=== PATIENT | female | born 1945 | race Caucasian/White ===

== ENCOUNTER → 2017-07-10 | Outpatient (CLI) | payer MEDICARE ==
--- NOTE | 2017-07-14 07:45 | MM ---
Reason for exam: screening (asymptomatic). Last mammogram was performed 1 year and 4 months ago. History: Patient is postmenopausal. Cancelled Left US Needle Biopsy of the left breast, February 18, 2007. Took estrogen for 10 years beginning at age 36. Physical Findings: A clinical breast exam by your physician is recommended on an annual basis and results should be correlated with mammographic findings. MG 3D Screening Mammo W/Cad Bilateral CC and MLO view(s) were taken. Prior study comparison: March 21, 2016, bilateral MG 3d screening mammo w/cad. January 26, 2015, bilateral MG 3d diag mammo w/cad LONNIE. There are scattered fibroglandular densities. Left sided subareolar nodularity is unchanged. ASSESSMENT: Negative, BI-RAD 1 RECOMMENDATION: Routine screening mammogram of both breasts in 1 year.
== END | disposition home or self-care (01) ==
LOC: RADMAMWWP 08:13
PROVIDERS: ATTEND Family Medicine
DX: Z12.31 Encounter for screening mammogram for malignant neoplasm of breast (principal)
CPT/HCPCS: 77063; 77067

== ENCOUNTER → 2018-07-13 | Outpatient (CLI) | payer MEDICARE ==
--- NOTE | 2018-07-15 11:07 | MM ---
Reason for exam: screening (asymptomatic). Last mammogram was performed 1 year ago. History: Patient is postmenopausal. Cancelled Left US Needle Biopsy of the left breast, February 18, 2007. Took estrogen for 10 years beginning at age 36. Physical Findings: A clinical breast exam by your physician is recommended on an annual basis and results should be correlated with mammographic findings. MG 3D Screening Mammo W/Cad Bilateral CC and MLO view(s) were taken. Prior study comparison: July 10, 2017, bilateral MG 3d screening mammo w/cad. March 21, 2016, bilateral MG 3d screening mammo w/cad. There are scattered fibroglandular densities. No suspicious abnormality. Stable left retroareolar focal asymmetry back to 2015. No significant changes when compared with prior studies. ASSESSMENT: Benign, BI-RAD 2 RECOMMENDATION: Routine screening mammogram of both breasts in 1 year.
== END | disposition home or self-care (01) ==
LOC: RADMAMWWP 10:01
PROVIDERS: ATTEND Family Medicine
DX: Z12.31 Encounter for screening mammogram for malignant neoplasm of breast (principal)
CPT/HCPCS: 77063; 77067

== ENCOUNTER → 2018-11-17 | Outpatient (CLI) | payer MEDICARE ==
--- NOTE | 2018-11-18 08:12 | US ---
EXAMINATION TYPE: US thyroid st tissue head/neck DATE OF EXAM: 11/17/2018 COMPARISON: NONE CLINICAL HISTORY: E04.9 Nontoxic goiter unspecified. Goiter GLAND SIZE: Right Lobe: 6.5 x 3.6 x 2.7 cm Overall Parenchyma: heterogenous Left Lobe: 6.3 x 3.3 x 3.1 cm Overall Parenchyma: heterogeneous Isthmus Thickness: 0.7 cm NODULES RIGHT: # of nodules measured on right: 1 1. 5.1 X 2.4 x 4.9 cm hypoechoic mixed nodule at the mid pole with poorly defined margins. This nod ule is wider than tall and shows intranodular vascularity. Prior size: no previous LEFT: # of nodules measured on left: 1 1. 4.8 X 2.5 x 3.3 cm hypoechoic mixed nodule at the mid pole with poorly defined margins. This nod ule is wider than tall and shows intranodular vascularity. Prior size: no previous ISTHMUS: # of nodules measured in the isthmus: 0 Bilateral neck scanned, no evidence of lymphadenopathy. IMPRESSION: There are bilateral large thyroid nodules measuring up to 5.1 cm on the right and 4.8 cm on the left. Fine-needle aspiration is recommended of both nodules.
== END | disposition home or self-care (01) ==
LOC: RADUSWWP 16:39
PROVIDERS: ATTEND Family Medicine
DX: E04.2 Nontoxic multinodular goiter (principal)
CPT/HCPCS: 76536

== ENCOUNTER → 2020-07-05 | Outpatient (CLI) | payer MEDICARE ==
--- NOTE | 2020-07-06 20:33 | NM ---
Lumbar spine. HISTORY: Back pain. COMPARISON: None. TECHNIQUE: 3 views lumbar spine were obtained. FINDINGS: The lumbar vertebral segments are normal in height and alignment and there is no fracture or subluxat ion. The disc spaces are well-maintained in height however there is spondylosis throughout the lumbar spin e indicating mild degenerative disc disease. Visualized portion the sacrum and SI joints appear normal. IMPRESSION: Findings consistent with mild degenerative disc disease throughout the lumbar spine with no other sig nificant abnormality seen.
--- NOTE | 2020-07-07 15:04 | NM ---
EXAMINATION TYPE: NM thyroid image w uptake DATE OF EXAM: 07/07/2020 COMPARISON: Thyroid ultrasound 11/17/2018 HISTORY: 75-year-old female R94.6 abn thyroid function, E04.9 goiter TECHNIQUE: Thyroid iodine uptake is calculated and images performed after the oral administration of 316 uCi 1-123 Capsule. FINDINGS: The thyroid scan images show bulky heterogeneous appearance to the gland. A couple focal areas of photopenia are present along the periphery of the mid and lower pole on the l eft. Thyroid ultrasound did not show discrete nodules in this region. Additional large area of photopenia involving the periphery of the right lobe compatible with the 5.1 cm nodule seen on ultrasound. There is an additional large area of increased uptake centered along the medial left mid lobe. Unclea r if this corresponds to the 4.8 cm left thyroid nodule seen on ultrasound. The 4 hour iodine uptake is calculated at 14.9% (normal range 8-14%). The 24-hour iodine uptake is calculated at 47.2 % (normal range 15-35%). IMPRESSION: 1. Multinodular gland on the thyroid scan images. A 5.1 cm cold nodule is suggested on the right whic h can be biopsied. 2. The 4.8 cm nodule on the left may correspond to the area of increased uptake on the thyroid scan s uggesting a hot/hyperfunctioning nodule. Given the size, biopsy can be performed prior to any subsequ ent intervention. 3. Uptake measurements suggest toxic multinodular goiter. If the patient is hyperthyroid/symptomatic, consider referral to endocrinology for potential radioactive iodine treatment.
== END | disposition home or self-care (01) ==
LOC: RADNMMAIN 08:37
PROVIDERS: ATTEND Family Medicine
DX: E04.2 Nontoxic multinodular goiter (principal)
CPT/HCPCS: 78014; A9516; 78012

== ENCOUNTER → 2021-04-09 | Outpatient (CLI) | payer MEDICARE ==
--- NOTE | 2021-04-09 16:31 | CT ---
EXAMINATION TYPE: CT soft tissue neck wo con DATE OF EXAM: 04/09/2021 COMPARISON: Nuclear medicine Thyroid scan 07/05/2020 HISTORY: 76-year-old female thyroidectomy planned for the end of the month. 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 Coronal and sagittal reconstructions performed. CT DLP: 288 mGycm Automated exposure control for dose reduction was used. FINDINGS: Visualized intracranial structures, orbits and globes, paranasal sinuses, and mastoid air cells appea r clear. Lack of IV contrast limits assessment of the cervical mucosal space. Allowing for this limitation, no gross abnormality of the nasopharynx or oropharynx. There is motion at the level of the glottis. Possible 6 mm nodularity at the left piriform sinus anu g the aryepiglottic fold, axial image 41. Subglottic airway is normal. Rightward tracheal deviation secondary to substernal extension of thyroi d goiter. No airway compromise. Emphysematous change and biapical pleural parenchymal scarring in the visualized lungs. Parotid and submandibular glands are satisfactory. Severely enlarged, heterogeneous, and nodular thyroid gland. The right lobe measures up to 7.9 cm mantel craftsman niocaudal. The left lobe measures greater than 9 cm and extends beyond the field of view into the upp er chest, left paratracheal, substernal region. No cervical adenopathy identified. Bones: Facet and uncovertebral joint arthropathy. Grade 1 retrolisthesis C4-C5 with moderate degenera tive disc disease. Moderate focal spinal canal stenosis at this level. IMPRESSION: 1. SEVERE GOITROUS ENLARGEMENT OF THE THYROID GLAND. THE RIGHT LOBE MEASURES UP TO 7.9 CM. THE LEFT L OBE MEASURES OVER 9 CM AND EXTENDS BEYOND THE FIELD OF VIEW INTO THE SUBSTERNAL, UPPER CHEST. 2. 6 MM NODULARITY ALONG THE LEFT PIRIFORM SINUS MAY BE DUE TO MOTION. DIRECT VISUALIZATION TO EXCLUD E A MUCOSAL LESION.
== END | disposition home or self-care (01) ==
LOC: RADCTMAIN 14:55
PROVIDERS: ATTEND Surgery
DX: E05.20 Thyrotoxicosis with toxic multinodular goiter without thyrotoxic crisis or storm (principal)
CPT/HCPCS: 70490

== ENCOUNTER → 2023-05-12 | Outpatient (CLI) | payer MEDICARE ==
--- NOTE | 2023-05-12 13:23 | XR ---
EXAMINATION TYPE: XR chest 2V DATE OF EXAM: 05/12/2023 12:33 PM CLINICAL INDICATION:Female, 78 years old with history of Z00.00 [facility] [employer] GENER[facility] ADULT MEDICAL EXAM W/O A; H COMPARISON: Chest radiographs from 06/02/2014. TECHNIQUE: XR chest 2V Frontal and lateral views of the chest. FINDINGS: Lungs/Pleura: There is no evidence of pleural effusion, focal consolidation, or pneumothorax. Pulmonary vascularity: Unremarkable. Heart/mediastinum: Cardiomediastinal silhouette is unremarkable. Musculoskeletal: No acute osseous pathology. IMPRESSION: 1. No acute cardiopulmonary disease process. 2. COPD changes.
--- NOTE | 2023-05-12 13:51 | XR ---
EXAMINATION TYPE: XR abdomen 1V DATE OF EXAM: 05/12/2023 12:33 PM CLINICAL INDICATION:Female, 78 years old with history of Z00.00 [facility] [employer] [facility]ULT MEDICAL EXAM W/O A; COMPARISON: 08/24/2014. TECHNIQUE: One radiographic view of the abdomen was obtained. FINDINGS: Gaseous dilation of bowel in the lower abdomen measuring up to 3.4 cm. The bowel gas patter n is nonspecific without dilated loops of small or large bowel. There is no evidence for organomegaly or pneumoperitoneum. The osseous structures are intact. No abnormal calcifications are present. Fe rivera material and gas are demonstrated throughout the colon and rectum. Moderate to severe degenerati on changes throughout the spine with scoliosis changes. Degeneration changes of the hips with osteoph yte formation and joint space narrowing. IMPRESSION: 1. Gaseous dilation of small bowel in the lower abdomen. Prominent bowel loops were seen in 2014. Ot herwise bowel gas pattern is unremarkable. 2. Moderately severe degeneration changes with scoliosis of the spine.
== END | disposition home or self-care (01) ==
LOC: RADXRMAIN 12:11
PROVIDERS: ATTEND Family Medicine
DX: Z00.00 Encounter for general adult medical examination without abnormal findings (principal); J44.9 Chronic obstructive pulmonary disease, unspecified
CPT/HCPCS: 71046; 74018

== ENCOUNTER → 2023-05-20 | Outpatient (CLI) | payer MEDICARE ==
--- NOTE | 2023-05-20 16:02 | BD ---
EXAMINATION TYPE: Axial Bone Density DATE OF EXAM: 05/20/2023 CLINICAL HISTORY: 78 years old Female. ICD-10 CODE: M81.0 AGE-RELATED OSTEOPOROSIS W/O CURRENT PATHO LOGY Height: 61 Weight: 125 FRAX RISK QUESTIONS: Family History (Parent hip fracture): no History of Fracture in Adulthood: no Secondary Osteoporosis: no RISK FACTORS HISTORY OF: Surgery to Spine/Hip(right/left)/Wrist (right/left): no MEDICATIONS: Thyroid Medications: yes Which medication: Levothyroxine How Lon+ years EXAM MEASUREMENTS: Bone mineral densitometry was performed using the [employer] System. Bone mineral density as measured about the Lumbar spine is: ----- L1-L4(G/cm2): 1.035 T Score Values are as follows: ----- L1: -2.3 ----- L2: -1.4 ----- L3: -1.0 ----- L4: -0.4 ----- L1-L4: -1.2 Z Score Values are as follows: ----- L1: -0.2 ----- L2: 0.7 ----- L3: 1.1 ----- L4: 1.7 ----- L1-L4: 0.9 Bone mineral density baseline Bone mineral density about the R hip (g/cm2): 0.652 Bone mineral density about the L hip (g/cm2): 0.644 T Score values are as follows: -----R Neck: -2.0 -----L Neck: -1.8 -----R Total: -2.8 -----L Total: -2.9 Z Score values are as follows: -----R Neck: 0.2 -----L Neck: 0.5 -----R Total: -0.7 -----L Total: -0.7 Bone mineral density baseline FRAX%s: The graph provided illustrates a 15.4% chance for a major osteoporotic fx and a 4.7% chance f or the hips probability for fx in 10 years time. IMPRESSION: Osteopenia (T Score between -2.5 and -1). There is slightly increased risk of fracture and the patient may be considered for treatment. Re-Screen 2-5 years. NOTE: T-SCORE=SD OF THE YOUNG ADULT MEAN.
== END | disposition home or self-care (01) ==
LOC: RADBDWWP 07:48
PROVIDERS: ATTEND Family Medicine
DX: M85.89 Other specified disorders of bone density and structure, multiple sites (principal); M81.0 Age-related osteoporosis without current pathological fracture
CPT/HCPCS: 77080

== ENCOUNTER 2023-10-13 11:24 | Observation (INO) | payer MEDICARE ==
--- NOTE | 2023-10-13 11:55 | ED ---
Chest Pain HPI - General Source: patient, family, RN notes reviewed Mode of arrival: ambulatory Limitations: no limitations - History of Present Illness MD Complaint: chest pain <Maren Hills - Last Filed: 10/13/23 11:54> - General Source: patient, RN notes reviewed Limitations: no limitations <Neal May - Last Filed: 10/13/23 13:27> - General Chief Complaint: Chest Pain Stated Complaint: chest pain Time Seen by Provider: 10/13/23 11:54 - History of Present Illness Initial Comments: Quick Note: This is a 78-year-old female who presents to the emergency department for chest pain. This has been occurring intermittently for the last 3 weeks. It is worse on the left side. Unsure how to characterize the pain. Pain occurs both at rest and with exertion. Denies any history of cardiac problems. (Maren Hills) Patient is a 78-year-old female presenting to the emergency department with concerns of chest discomfort. Symptoms have been present over the past couple of weeks. Discomfort can sometimes get up to 4 5/10, no discomfort at this time. Discomfort feels like an ache. No associated dyspnea, nausea, or diaphoresis. No history of similar symptoms previously (Neal May) - Related Data Home Medications Medication Instructions Recorded Confirmed Bimatoprost [Lumigan 0.01% Ophth 1 drop BOTH EYES HS 11/30/13 08/25/14 Soln] Cetirizine HCl [Zyrtec] 10 mg PO HS 11/30/13 08/25/14 allopurinoL [Zyloprim] 300 mg PO HS 11/30/13 08/25/14 busPIRone HCl [Buspar] 5 mg PO BID 11/30/13 08/25/14 guaiFENesin [Mucinex] 600 mg PO BID 11/30/13 08/25/14 raNITIdine HCL [Zantac] 150 mg PO HS 11/30/13 08/25/14 Albuterol Sulfate [Proair Hfa] 2 puff INHALATION RT-Q4H PRN 06/02/14 08/25/14 Atorvastatin [Lipitor] 20 mg PO HS 06/02/14 08/25/14 Docusate [Colace] 100 mg PO DAILY PRN 06/02/14 08/25/14 Triamcinolone Acetonide [Nasacort] 1 spray EA NOSTRIL DAILY PRN 06/02/14 amLODIPine [Norvasc] 5 mg PO DAILY 06/02/14 08/25/14 Albuterol Nebulized [Ventolin 2.5 mg INHALATION RT-Q8H PRN 08/25/14 08/25/14 Nebulized] Budesonide [Pulmicort Flexhaler] 1 puff PO RT-BID 08/25/14 08/25/14 Ipratropium/Albuterol Sulfate 1 puff INHALATION RT-QID 08/25/14 08/25/14 [Combivent Respimat Inhaler] Previous Rx's Medication Instructions Recorded Levofloxacin [Levaquin] 250 mg PO DAILY #3 tab 08/26/14 Allergies Allergy/AdvReac Type Severity Reaction Status Date / Time amoxicillin trihydrate AdvReac Nausea & Verified 08/25/14 16:12 [From Augmentin] Vomiting cholecalciferol (vitamin D3) AdvReac CONSTIPATIO Verified 08/25/14 16:12 [From Vitamin D3] N erythromycin base AdvReac Nausea & Verified 08/25/14 16:12 [Erythromycin Base] Vomiting iron AdvReac Nausea Verified 08/25/14 16:12 potassium clavulanate AdvReac Nausea & Verified 08/25/14 16:12 [From Augmentin] Vomiting Review of Systems ROS Other: All systems not noted in ROS Statement are negative. <Maren Hills - Last Filed: 10/13/23 11:54> ROS Other: All systems not noted in ROS Statement are negative. Constitutional: Denies: fever Eyes: Denies: eye pain ENT: Denies: ear pain Respiratory: Denies: dyspnea Cardiovascular: Reports: as per HPI, chest pain Endocrine: Denies: fatigue Gastrointestinal: Denies: abdominal pain Musculoskeletal: Denies: back pain <Neal May - Last Filed: 10/13/23 13:27> ROS Statement: Those systems with pertinent positive or pertinent negative responses have been documented in the HPI. EKG Findings - EKG Results: EKG: interpreted by ERMD, sinus rhythm, normal axis, normal QRS, normal ST/T <Neal May - Last Filed: 10/13/23 13:27> Past Medical History Past Medical History: GERD/Reflux, Hyperlipidemia, Hypertension Additional Past Medical History / Comment(s): seasonal allergies, mac. degen disease, GOUT,ANEMIA, Hyperkalemia 07/2014, Pancreatitis 08/2014 History of Any Multi-Drug Resistant Organisms: None Reported Past Surgical History: Appendectomy, Section, Cholecystectomy, Hysterectomy, Tonsillectomy Additional Past Surgical History / Comment(s): D&C x 2 Past Anesthesia/Blood Transfusion Reactions: No Reported Reaction Additional Past Anesthesia/Blood Transfusion Reaction / Comment(s): vertigo Past Psychological History: Anxiety Past Alcohol Use History: None Reported Past Drug Use History: None Reported - Past Family History Father Family Medical History: Unable to Obtain Mother Family Medical History: Unable to Obtain Additional Family Medical History / Comment(s): Pt was adopted <Maren Hills - Last Filed: 10/13/23 11:54> General Exam Limitations: no limitations <Maren Hills - Last Filed: 10/13/23 11:54> Limitations: no limitations General appearance: alert, in no apparent distress Head exam: Present: normocephalic Eye exam: Present: normal appearance Neck exam: Present: normal inspection Respiratory exam: Present: normal lung sounds bilaterally. Absent: chest wall tenderness Cardiovascular Exam: Present: regular rate, normal rhythm, normal heart sounds Expanded Peripheral pulses: 2+: Radial (R), Radial (L), Posterior Tibialis (R), Posterior Tibialis (L) GI/Abdominal exam: Present: soft. Absent: tenderness Extremities exam: Present: normal inspection. Absent: pedal edema, calf tenderness Neurological exam: Present: alert Psychiatric exam: Present: normal affect, normal mood Skin exam: Present: normal color <Neal May - Last Filed: 10/13/23 13:27> - General Exam Comments Initial Comments: Visual Physical Exam Vital signs reviewed General: Well-appearing, nontoxic, no acute distress. Head: Normocephalic, atraumatic Eyes: PERRLA, EOMI ENT: Airway patent Chest: Nonlabored breathing Skin: No visual rash, normal skin tone Neuro: Alert and oriented 3 Musculoskeletal: No gross abnormalities (Maren Hills) Course Vital Signs 10/13/23 10/13/23 10/13/23 11:31 12:17 12:32 Temperature 978 F H 97.9 F Pulse Rate 100 86 Pulse Rate [ 98 Pulse Oximetery ] Respiratory 20 17 Rate Blood Pressure 133/83 144/78 O2 Sat by Pulse 98 96 Oximetry Chest Pain MDM <Maren Hills - Last Filed: 10/13/23 11:54> <Neal May - Last Filed: 10/13/23 13:27> - MDM I performed the QuickNote portion of this chart. Signed Maren Hills PA-C. (Maren Hills) Was pt. sent in by a medical professional or institution (, ORAL, WARE TESTER, urgent care, hospital, or fci...) When possible be specific @ -No Did you speak to anyone other than the patient for history (EMS, parent, family, police, friend...)? What history was obtained from this source @ -Daughter is present helps provide history including onset Did you review nursing and triage notes (agree or disagree)? Why? @ -I reviewed and agree with nursing and triage notes Were old charts reviewed (outside hosp., previous admission, EMS record, old EKG, old radiological studies, urgent care reports/EKG's, fci records)? Report findings @ -No old charts were reviewed Differential Diagnosis (chest pain, altered mental status, abdominal pain women, abdominal pain men, vaginal bleeding, weakness, fever, dyspnea, syncope, headache, dizziness, GI bleed, back pain, seizure, CVA, palpatations, mental health, musculoskeletal)? @ -Differential Chest Pain: Stable Angina, Unstable Angina, STEMI, NSTEMI Aortic Dissection, Pneumothorax, Musculoskeletal, Esophageal Spasm GERD, Cholecystitis, Pancreatitis, Zoster, this is not meant to be an all-inclusive list. EKG interpreted by me (3pts min.). @ -As above X-rays interpreted by me (1pt min.). @ -Chest x-ray shows no acute process CT interpreted by me (1pt min.). @ -None done U/S interpreted by me (1pt. min.). @ -None done What testing was considered but not performed or refused? (CT, X-rays, U/S, labs)? Why? @ -None What meds were considered but not given or refused? Why? @ -None Did you discuss the management of the patient with other professionals (professionals i.e. , PA, WARE TESTER, lab, RT, psych nurse, director of social work, cable respooler, teacher, parachute officer, manager of case management)? Give summary @ -Case was discussed with Dr. Rodriguez who will admit covering Dr. Young Was smoking cessation discussed for >3mins.? @ -No Was critical care preformed (if so, how long)? @ -No Were there social determinants of health that impacted care today? How? (Homelessness, low income, unemployed, alcoholism, drug addiction, transportation, low edu. Level, literacy, decrease access to med. care, intermediate, rehab)? @ -No Was there de-escalation of care discussed even if they declined (Discuss DNR or withdrawal of care, Hospice)? DNR status @ -No What co-morbidities impacted this encounter? (DM, HTN, Smoking, COPD, CAD, Cancer, CVA, ARF, Chemo, Hep., AIDS, mental health diagnosis, sleep apnea, morbid obesity)? @ -None Was patient admitted / discharged? Hospital course, mention meds given and route, prescriptions, significant lab abnormalities, going to OR and other pertinent info. @ -Patient presents with chest discomfort over the last couple of weeks, patient will be admitted with cardiac consult. Admission orders written. Undiagnosed new problem with uncertain prognosis? @ -No Drug Therapy requiring intensive monitoring for toxicity (Heparin, Nitro, Insulin, Cardizem)? @ -No Were any procedures done? @ -No Diagnosis/symptom? @ -Chest pain Acute, or Chronic, or Acute on Chronic? @ -Acute Uncomplicated (without systemic symptoms) or Complicated (systemic symptoms)? @ -Default Side effects of treatment? @ -No Exacerbation, Progression, or Severe Exacerbation? @ -No Poses a threat to life or bodily function? How? (Chest pain, [place], [place], pneumonia, PE, COPD, DKA, ARF, appy, cholecystitis, CVA, Diverticulitis, Homicidal, Suicidal, threat to staff... and all critical care pts) @ -Threat to cardiac function (Neal May) Disposition <Maren Hills - Last Filed: 10/13/23 11:54> Is patient prescribed a controlled substance at d/c from ED?: No Time of Disposition: 13:27 <Neal May - Last Filed: 10/13/23 13:27> Clinical Impression: Chest pain Disposition: ADMITTED IP TO THIS HOSP Referrals: Kt Young DO [Primary Care Provider] - 1-2 days
[2023-10-13 11:58] LABS: Basophils % (A) 0 %; Eosinophils # (A) 0.1 k/uL (0-0.7); Eosinophils % (A) 1 %; HGB 10.8 gm/dL (11.4-16.0); Lymphocytes # (A) 1.4 k/uL (1.0-4.8); Lymphocytes % (A) 19 %; MCH 30.6 pg (25.0-35.0); MCHC 33.7 g/dL (31.0-37.0); MCV 90.9 fL (80.0-100.0); Mean Platelet Volume 7.2; Monocytes # (A) 0.6 k/uL (0-1.0); Monocytes % (A) 8 %; Neutrophils # (A) 5.2 k/uL (1.3-7.7); Neutrophils % (A) 69 %; Platelet Count 321 k/uL (150-450); RBC 3.52 m/uL (3.80-5.40); RDW 14.2 % (11.5-15.5); WBC 7.6 k/uL (3.8-10.6)
[2023-10-13 12:12] LABS: Partial Thromboplastin Time 24.2 sec (22.0-30.0); Prothrombin Time 10.6 sec (10.0-12.5)
[2023-10-13 12:16] LABS: ALT 23 U/L (4-34); AST 31 U/L (14-36); African American GFR (CKD) >90 (>60 ml/min/1.73 sqM); Albumin 3.7 g/dL (3.5-5.0); Alkaline Phosphatase 79 U/L (38-126); Anion Gap 6 mmol/L; Blood Urea Nitrogen 15 mg/dL (7-17); Calcium 8.8 mg/dL (8.4-10.2); Carbon Dioxide 23 mmol/L (22-30); Chloride 105 mmol/L (98-107); Glucose 105 mg/dL (74-99); Magnesium 1.3 mg/dL (1.6-2.3); Non-African American GFR(CKD) 86 (>60 ml/min/1.73 sqM); Potassium 4.4 mmol/L (3.5-5.1); Sodium 134 mmol/L (137-145); Total Bilirubin 0.4 mg/dL (0.2-1.3)
[2023-10-13] MEDS: MAGNESIUM OXIDE 400 MG TAB PO STA (12:33)
--- NOTE | 2023-10-13 12:33 | XR ---
EXAMINATION TYPE: XR chest 2V DATE OF EXAM: 10/13/2023 COMPARISON: 05/12/2023 HISTORY: Chest pain TECHNIQUE: 2 view chest FINDINGS: The heart size is normal. The pulmonary vasculature is normal. The lungs are clear rate oss eous structures are unremarkable. IMPRESSION: 1. No acute pulmonary process.
[2023-10-13] MEDS ORDERED: NITROGLYCERIN SL TABS 0.4 MG TAB SUBLINGUAL PRN (13:27)
[2023-10-13] MEDS: ASPIRIN 81 MG PO STA (13:36)
[2023-10-13] MEDS ORDERED: ALBUTEROL NEBULIZED 2.5 MG/3 ML INHALATION PRN (14:27)
--- NOTE | 2023-10-13 15:14 | P.CRDCN ---
History of Present Illness History of present illness: HISTORY OF PRESENTING ILLNESS Patient is a pleasant 78-year-old female with history of hypertension, hyperlipidemia, GERD, gout who presents secondary chest pain. She has not seen a hospitality recruiter in a number of years. She believes her last stress test was approximately 10 years ago. She does not have any history of significant CAD or catheterization. She states over last 3 months she has been having intermittent episodes of chest pain usually lasting for a few minutes up to 20 minutes not associated with any significant shortness breath, nausea or diaphoresis. It feels like a achiness behind her left breast. No significant association with movement or positioning. No significant trauma. Symptoms have been recurrent and therefore mention this to her daughter who works at the prior station and was recommended to come to the hospital. Denies any significant palpitations du ring these episodes. REVIEW OF SYSTEMS At the time of my exam: CONSTITUTIONAL: Denies fever or chills. CARDIOVASCULAR: +chest pain, +shortness of breath, no orthopnea, PND or palpitations. RESPIRATORY: Denies cough. GASTROINTESTINAL: Denies abdominal pain, diarrhea, constipation, nausea or vomiting. MUSCULOSKELETAL: Denies myalgias. NEUROLOGIC: Denies numbness, tingling or weakness. ENDOCRINE: Denies fatigue, weight change, polydipsia or polyurina. GENITOURINARY: Denies burning, hematuria or urgency with micturation. HEMATOLOGIC: Denies history of anemia or bleeding. PHYSICAL EXAMINATION Vital signs reviewed. CONSTITUTIONAL: No apparent distress. HEENT: Head is normocephalic. Pupils are equal, round. Sclerae anicteric. Mucous membranes of the mouth are moist. No JVD. No carotid bruit. CHEST EXAMINATION: Lungs are clear to auscultation. No chest wall tenderness is noted on palpation or with deep breathing. HEART EXAMINATION: Regular rate and rhythm. S1, S2 heard. No murmurs, gallops or rub. ABDOMEN: Soft, nontender. Positive bowel sounds. EXTREMITIES: 2+ peripheral pulses, no lower extremity edema and no calf tenderness. NEUROLOGIC EXAMINATION: Patient is awake, alert and oriented x3. ASSESSMENT Atypical episodic chest pain over the last few months Hypertension Hyperlipidemia Dyspnea PLAN patient with intermittent episodes of chest pain. We will check echo to evaluat e left ventricular function. Additionally check a Lexiscan stress test. Monitor on telemetry for any significant arrhythmias. Further recommendations to follow. Past Medical History Past Medical History: GERD/Reflux, Hyperlipidemia, Hypertension Additional Past Medical History / Comment(s): seasonal allergies, mac. degen disease, GOUT,ANEMIA, Hyperkalemia 07/2014, Pancreatitis 08/2014 History of Any Multi-Drug Resistant Organisms: None Reported Past Surgical History: Appendectomy, Section, Cholecystectomy, Hysterectomy, Tonsillectomy Additional Past Surgical History / Comment(s): D&C x 2 Past Anesthesia/Blood Transfusion Reactions: No Reported Reaction Additional Past Anesthesia/Blood Transfusion Reaction / Comment(s): vertigo Past Psychological History: Anxiety Past Alcohol Use History: None Reported Past Drug Use History: None Reported - Past Family History Father Family Medical History: Unable to Obtain Mother Family Medical History: Unable to Obtain Additional Family Medical History / Comment(s): Pt was adopted Medications and Allergies Home Medications Medication Instructions Recorded Confirmed Type Cetirizine HCl [Zyrtec] 10 mg PO BID 11/30/13 10/13/23 History allopurinoL [Zyloprim] 300 mg PO DAILY 11/30/13 10/13/23 History busPIRone HCl [Buspar] 5 mg PO BID 11/30/13 10/13/23 History guaiFENesin [Mucinex] 600 mg PO BID 11/30/13 10/13/23 History Albuterol Sulfate [Proair Hfa] 2 puff INHALATION RT-QID PRN 06/02/14 10/13/23 H istory Atorvastatin [Lipitor] 20 mg PO DAILY 06/02/14 10/13/23 History Triamcinolone Acetonide [Nasacort] 1 spr EA NOSTRIL DAILY PRN 06/02/14 10/13/23 History amLODIPine [Norvasc] 5 mg PO DAILY 06/02/14 10/13/23 History Albuterol Nebulized [Ventolin 2.5 mg INHALATION RT-QID PRN 08/25/14 10/13/23 History Nebulized] Acetaminophen Tab [Tylenol Tab] 500 - 1,000 mg PO Q6H PRN 10/13/23 10/13/23 History Calcium Carbonate [Calcium] 600 mg PO DAILY 10/13/23 10/13/23 History Clobetasol Propionate [Temovate 1 applic TOPICAL BID PRN 10/13/23 10/13/23 History 0.05% Cream] Easy Iron 28mg 28 mg PO Q2D 10/13/23 10/13/23 History Elderberry 1250mg 1 tab PO BID 10/13/23 10/13/23 History Eye Itch Relief 0.035% Eye Drops 1 drop BOTH EYES DAILY PRN 10/13/23 10/13/23 History Leg Cramp Tabs(Unknown) 1 tab PO DAILY 10/13/23 10/13/23 History Levothyroxine Sodium [Synthroid] 100 mcg PO DAILY 10/13/23 10/13/23 History Loratadine [Children's Loratadine 5 mg PO DAILY PRN 10/13/23 10/13/23 History Chew] Multivitamin [Multivitamins Adult 2 tab PO DAILY 10/13/23 10/13/23 History Gummies] Omeprazole 20 mg PO BID 10/13/23 10/13/23 History Vitamin B Complex W/Vitamin C 1 tab PO DAILY 10/13/23 10/13/23 History Vitamin B-12 Gummy 2 tab PO DAILY 10/13/23 10/13/23 History Vitamin C 250mg Gummy 500 mg PO DAILY 10/13/23 10/13/23 History Vitamin D3 50mcg Gummy 100 mcg PO DAILY 10/13/23 10/13/23 History Zinc Gummy 2 tab PO DAILY 10/13/23 10/13/23 History metFORMIN HCL [Glucophage] 500 mg PO DAILY 10/13/23 10/13/23 History Allergies Allergy/AdvReac Type Severity Reaction Status Date / Time amoxicillin trihydrate AdvReac Nausea & Verified 10/13/23 13:47 [From Augmentin] Vomiting cholecalciferol (vitamin D3) AdvReac CONSTIPATIO Verified 10/13/23 13:47 [From Vitamin D3] N erythromycin base AdvReac Nausea & Verified 10/13/23 13:47 [Erythromycin Base] Vomiting iron AdvReac Nausea Verified 10/13/23 13:47 potassium clavulanate AdvReac Nausea & Verified 10/13/23 13:47 [From Augmentin] Vomiting Physical Exam Vitals: Vital Signs Temp Pulse Pulse Resp BP Pulse Ox 10/13/23 13:40 98.5 F 86 17 154/82 97 10/13/23 12:32 97.9 F 86 17 144/78 96 10/13/23 12:17 98 10/13/23 11:31 978 F H 100 20 133/83 98 Intake and Output 10/13/23 10/13/23 10/13/23 06:59 14:59 22:59 Other: Weight 56.699 kg Results 10/13/23 11:50 10/13/23 11:50 Cardiac Enzymes 10/13/23 10/13/23 10/13/23 Range/Units 11:50 11:50 13:30 AST 31 (14-36) U/L Troponin I <0.012 <0.012 (0.000-0.034) ng/mL Coagulation 10/13/23 Range/Units 11:50 PT 10.6 (10.0-12.5) sec APTT 24.2 (22.0-30.0) sec CBC 10/13/23 Range/Units 11:50 WBC 7.6 (3.8-10.6) k/uL RBC 3.52 L (3.80-5.40) m/uL Hgb 10.8 L (11.4-16.0) gm/dL Hct 32.0 L (34.0-46.0) % Plt Count 321 (150-450) k/uL Comprehensive Metabolic Panel 10/13/23 Range/Units 11:50 Sodium 134 L (137-145) mmol/L Potassium 4.4 (3.5-5.1) mmol/L Chloride 105 (98-107) mmol/L Carbon Dioxide 23 (22-30) mmol/L BUN 15 (7-17) mg/dL Creatinine 0.62 (0.52-1.04) mg/dL Glucose 105 H (74-99) mg/dL Calcium 8.8 (8.4-10.2) mg/dL AST 31 (14-36) U/L ALT 23 (4-34) U/L Alkaline Phosphatase 79 (38-126) U/L Total Protein 6.0 L (6.3-8.2) g/dL Albumin 3.7 (3.5-5.0) g/dL Current Medications Generic Name Dose Route Start Last Admin Trade Name Freq PRN Reason Stop Dose Admin Albuterol Sulfate 2.5 mg 10/13/23 14:27 Albuterol Nebulized 2.5 Mg/3 Ml INHALATION RT-QID PRN Shortness Of Breath Allopurinol 300 mg 10/14/23 09:00 Allopurinol 300 Mg Tab PO DAILY [facility] Aminophylline 100 mg 10/14/23 06:00 Aminophylline 500 Mg/20 Ml Vial IV 10/14/23 23:00 ONCE PRN Patient Response Amlodipine Besylate 5 mg 10/14/23 09:00 Amlodipine 5 Mg Tab PO DAILY [facility] Ascorbic Acid 500 mg 10/14/23 09:00 Ascorbic Acid 500 Mg Tab PO DAILY [facility] Aspirin 325 mg 10/14/23 09:00 Aspirin 325 Mg Tab PO DAILY [facility] Atorvastatin Calcium 20 mg 10/14/23 09:00 Atorvastatin 20 Mg Tab PO DAILY [facility] Buspirone HCl 5 mg 10/13/23 21:00 Buspirone Hcl 5 Mg Tab PO BID [facility] Caffeine Citrate 60 mg 10/14/23 05:00 Caffeine Citrate 60 Mg/3 Ml Vial IV 10/14/23 23:00 ONCE PRN Patient Response Calcium Carbonate/Glycine 500 mg 10/14/23 09:00 Calcium Carbonate 500 Mg Chewable PO DAILY [facility] Cholecalciferol 125 mcg 10/14/23 09:00 Cholecalciferol 125 Mcg (5000 Iu) Tablet PO DAILY [facility] Cyanocobalamin 500 mcg 10/14/23 09:00 Cyanocobalamin 500 Mcg Tab PO DAILY [facility] Guaifenesin 600 mg 10/13/23 21:00 Guaifenesin 600 Mg Tablet.Er PO BID [facility] Levothyroxine Sodium 100 mcg 10/14/23 06:30 Levothyroxine 100 Mcg Tab PO DAILY@0630 [facility] Loratadine 10 mg 10/13/23 21:00 Loratadine 10 Mg Tab PO BID [facility] Metformin HCl 500 mg 10/14/23 09:00 Metformin 500 Mg Tab PO DAILY [facility] Multivit/Ca Carb/B Cmplx/FA/Prenat 1 each 10/14/23 09:00 Folic Acid-Vit B Complex-Vit C 1 Cap PO DAILY [facility] Nitroglycerin 0.4 mg 10/13/23 13:27 Nitroglycerin Sl Tabs 0.4 Mg Tab SUBLINGUAL Q5M PRN Chest Pain Pantoprazole Sodium 40 mg 10/14/23 07:30 Pantoprazole 40 Mg Tablet PO AC-BRKFST [facility] Regadenoson 0.4 mg 10/14/23 06:00 Regadenoson 0.4 Mg/5 Ml Syringe IV 10/14/23 23:00 ONCE PRN Per Protocol Intake and Output 10/13/23 10/13/23 10/13/23 06:59 14:59 22:59 Other: Weight 56.699 kg Patient Weight 10/14/23 06:59 Weight 56.699 kg 10/13/23 11:50 10/13/23 11:50
[2023-10-13] MEDS: guaiFENesin 600 MG TABLET.ER PO SCH (20:45)
[2023-10-13] MEDS: busPIRone HCl 5 MG TAB PO SCH (20:45)
[2023-10-13] MEDS: LORATADINE 10 MG TAB PO SCH (20:45)
--- NOTE | 2023-10-13 22:44 | P.HPIM ---
History of Present Illness H&P Date: 10/13/23 Chief Complaint: Chest pain Patient is a 78-year-old female with a past medical history of hypertension, hyperlipidemia, GERD and seasonal allergies and anxiety presents to ER with complaints of chest pain. Patient states that she has been having chest pain on and off over the lasting about 5 to 10 minutes. Pain is mainly behind the left breast and felt like pressure. Episodes with some nausea. No chills or vomiting. Denies any hematemesis or melena. No headache or dizziness or lightheadedness. No radiation of the pain. Denies any recent illnesses. Patient does take arthritis pain pill which she does not know. Patient takes it 3 times daily. No prior history of gastric ulcers. Chest x-ray showed no acute pulmonary process. EKG showed sinus rhythm. Laboratory data showed WBC 7.6 hemoglobin 10.8 and platelets 321 sodium 134 potassium 4.4 chloride 105 bicarb is 23 BUN 15 and creatinine 0.62 and blood sugar is 105 magnesium 1.3 and troponin x 2 negative. Albumin 3.7. Review of Systems Constitutional: Patient denies any fever or chills . No generalized weakness or weight loss. Abdomen: Patient denied nausea vomiting and diarrhea and abdominal pain. Cardiovascular: Patient denies any chest pain or short of breath no pa lpitations. Respiratory: patient denied any cough or sputum production. No shortness of breath Neurologic: Patient denied any numbness or tingling. no headache. Musculoskeletal: Patient denies any complaints of joint swelling or deformity. Skin: Negative Psychiatric: Negative Endocrine: No heat or cold intolerance. No recent weight gain. Genitourinary: No dysuria or hematuria. All other 14 point ROS negative except the above Past Medical History Past Medical History: GERD/Reflux, Hyperlipidemia, Hypertension Additional Past Medical History / Comment(s): seasonal allergies, mac. degen disease, GOUT,ANEMIA, Hyperkalemia 07/2014, Pancreatitis 08/2014 History of Any Multi-Drug Resistant Organisms: None Reported Past Surgical History: Appendectomy, Section, Cholecystectomy, Hysterectomy, Tonsillectomy Additional Past Surgical History / Comment(s): D&C x 2 Past Anesthesia/Blood Transfusion Reactions: No Reported Reaction Additional Past Anesthesia/Blood Transfusion Reaction / Comment(s): vertigo Past Psychological History: Anxiety Past Alcohol Use History: None Reported Past Drug Use History: None Reported - Past Family History Father Family Medical History: Unable to Obtain Mother Family Medical History: Unable to Obtain Additional Family Medical History / Comment(s): Pt was adopted Medications and Allergies Home Medications Medication Instructions Recorded Confirmed Type Cetirizine HCl [Zyrtec] 10 mg PO BID 11/30/13 10/13/23 History allopurinoL [Zyloprim] 300 mg PO DAILY 11/30/13 10/13/23 History busPIRone HCl [Buspar] 5 mg PO BID 11/30/13 10/13/23 History guaiFENesin [Mucinex] 600 mg PO BID 11/30/13 10/13/23 History Albuterol Sulfate [Proair Hfa] 2 puff INHALATION RT-QID PRN 06/02/14 10/13/23 History Atorvastatin [Lipitor] 20 mg PO DAILY 06/02/14 10/13/23 History Triamcinolone Acetonide [Nasacort] 1 spr EA NOSTRIL DAILY PRN 06/02/14 10/13/23 History amLODIPine [Norvasc] 5 mg PO DAILY 06/02/14 10/13/23 History Albuterol Nebulized [Ventolin 2.5 mg INHALATION RT-QID PRN 08/25/14 10/13/23 History Nebulized] Acetaminophen Tab [Tylenol] 500 - 1,000 mg PO Q6H PRN 10/13/23 10/13/23 History Calcium Carbonate [Calcium] 600 mg PO DAILY 10/13/23 10/13/23 History Clobetasol Propionate [Temovate 1 applic TOPICAL BID PRN 10/13/23 10/13/23 History 0.05% Cream] Easy Iron 28mg 28 mg PO Q2D 10/13/23 10/13/23 History Elderberry 1250mg 1 tab PO BID 10/13/23 10/13/23 History Eye Itch Relief 0.035% Eye Drops 1 drop BOTH EYES DAILY PRN 10/13/23 10/13/23 History Leg Cramp Tabs(Unknown) 1 tab PO DAILY 10/13/23 10/13/23 History Levothyroxine Sodium [Synthroid] 100 mcg PO DAILY 10/13/23 10/13/23 History Loratadine [Children's Loratadine 5 mg PO DAILY PRN 10/13/23 10/13/23 History Chew] Multivitamin [Multivitamins Adult 2 tab PO DAILY 10/13/23 10/13/23 History Gummies] Omeprazole 20 mg PO BID 10/13/23 10/13/23 History Vitamin B Complex W/Vitamin C 1 tab PO DAILY 10/13/23 10/13/23 History Vitamin B-12 Gummy 2 tab PO DAILY 10/13/23 10/13/23 History Vitamin C 250mg Gummy 500 mg PO DAILY 10/13/23 10/13/23 History Vitamin D3 50mcg Gummy 100 mcg PO DAILY 10/13/23 10/13/23 History Zinc Gummy 2 tab PO DAILY 10/13/23 10/13/23 History metFORMIN HCL [Glucophage] 500 mg PO DAILY 10/13/23 10/13/23 History Allergies Allergy/AdvReac Type Severity Reaction Status Date / Time amoxicillin trihydrate AdvReac Nausea & Verified 10/13/23 13:47 [From Augmentin] Vomiting cholecalciferol (vitamin D3) AdvReac CONSTIPATIO Verified 10/13/23 13:47 [From Vitamin D3] N erythromycin base AdvReac Nausea & Verified 10/13/23 13:47 [Erythromycin Base] Vomiting iron AdvReac Nausea Verified 10/13/23 13:47 potassium clavulanate AdvReac Nausea & Verified 10/13/23 13:47 [From Augmentin] Vomiting Physical Exam Vitals: Vital Signs Temp Pulse Pulse Resp BP Pulse Ox 10/13/23 13:40 98.5 F 86 17 154/82 97 10/13/23 12:32 97.9 F 86 17 144/78 96 10/13/23 12:17 98 10/13/23 11:31 978 F H 100 20 133/83 98 Intake and Output 10/13/23 10/13/23 10/13/23 06:59 14:59 22:59 Other: Weight 56.699 kg PHYSICAL EXAMINATION: Patient is lying in the bed comfortably, no acute distress, awake alert and oriented.. HEENT: Normocephalic. Neck is supple. Pupils reactive. Nostrils clear. Oral cavity is moist. Neck reveals no JVD, carotid bruits, or thyromegaly. CHEST EXAMINATION: Trachea is central. Symmetrical expansion. Lung seymour clear to auscultation and percussion. CARDIAC: Normal S1, S2 with no gallops. No murmurs ABDOMEN: Soft. Bowel sounds normal. No organomegaly. No abdominal bruits. Extremities: reveal no edema. No clubbing or cyanosis Neurologically awake, alert, oriented x3 with well-coordinated movements. No focal deficits noted Skin: No rash or skin lesions. Psychiatric: Coperative. Nonsuicidal Musculoskeletal: No joint swelling or deformity. Normal range of motion. Results CBC & Chem 7: 10/13/23 11:50 10/14/23 08:20 Labs: Abnormal Lab Results - Last 24 Hours (Table) 10/13/23 10/13/23 Range/Units 11:50 11:50 RBC 3.52 L (3.80-5.40) m/uL Hgb 10.8 L (11.4-16.0) gm/dL Hct 32.0 L (34.0-46.0) % Sodium 134 L (137-145) mmol/L Glucose 105 H (74-99) mg/dL Magnesium 1.3 L (1.6-2.3) mg/dL Total Protein 6.0 L (6.3-8.2) g/dL Thrombosis Risk Factor Assmnt - DVT/VTE Prophylaxis DVT/VTE Prophylaxis: Pharmacologic Prophylaxis ordered Assessment and Plan Assessment: Atypical chest pain. Rule out ACS. Hypomagnesemia replaced. Hypertension Hyperlipidemia Osteoarthritis Hypothyroidism GERD Seasonal allergies Macular degeneration History of gout Anxiety Polypharmacy DVT and GI prophylaxis Plan: Patient will be continued on telemonitoring. Serial EKG and troponin x 3. Initial troponins negative. Continue with PPI and cardiology was consulted. Cardiology recommends stress test. Will continue to follow closely. Time with Patient: Greater than 30
[2023-10-14] MEDS: MAGNESIUM SULFATE-D5W PMX 1 GM in DEXTROSE/WATER 1 100ML.BAG IVPB ONE (00:34)
[2023-10-14] MEDS ORDERED: CAFFEINE CITRATE 60 MG/3 ML VIAL IV PRN (05:00)
[2023-10-14] MEDS ORDERED: REGADENOSON 0.4 MG/5 ML SYRINGE IV PRN (06:00)
[2023-10-14] MEDS ORDERED: AMINOPHYLLINE 500 MG/20 ML VIAL IV PRN (06:00)
[2023-10-14] MEDS: LEVOTHYROXINE 100 MCG TAB PO SCH (06:49)
[2023-10-14 07:43] VITALS: RESP 16
[2023-10-14] MEDS: PANTOPRAZOLE 40 MG TABLET PO SCH (08:40)
[2023-10-14] MEDS: allopurinoL 300 MG TAB PO SCH (08:40)
[2023-10-14] MEDS: CALCIUM CARBONATE 500 MG CHEWABLE PO SCH (08:41)
[2023-10-14] MEDS: amLODIPine 5 MG TAB PO SCH (08:41)
[2023-10-14] MEDS: CYANOCOBALAMIN 500 MCG TAB PO SCH (08:41)
[2023-10-14] MEDS: metFORMIN 500 MG TAB PO SCH (08:41)
[2023-10-14] MEDS: CHOLECALCIFEROL 125 MCG (5000 IU) TABLET PO SCH (08:41)
[2023-10-14] MEDS: ATORVASTATIN 20 MG TAB PO SCH (08:41)
[2023-10-14] MEDS: ASCORBIC ACID 500 MG TAB PO SCH (08:41)
[2023-10-14] MEDS: ASPIRIN 325 MG TAB PO SCH (08:41)
[2023-10-14] MEDS ORDERED: REGADENOSON 0.4 MG/5 ML SYRINGE IV ONE (09:00)
[2023-10-14 09:04] LABS: African American GFR (CKD) >90 (>60 ml/min/1.73 sqM); Anion Gap 6 mmol/L; Blood Urea Nitrogen 11 mg/dL (7-17); Calcium 9.1 mg/dL (8.4-10.2); Carbon Dioxide 26 mmol/L (22-30); Chloride 105 mmol/L (98-107); Glucose 134 mg/dL (74-99); Non-African American GFR(CKD) >90 (>60 ml/min/1.73 sqM); Potassium 4.3 mmol/L (3.5-5.1); Sodium 137 mmol/L (137-145)
--- NOTE | 2023-10-14 10:25 | P.PN ---
Subjective HISTORY OF PRESENTING ILLNESS Patient is a pleasant 78-year-old female with history of hypertension, hyperlipidemia, GERD, gout who presents secondary chest pain. She has not seen a low raw sugar cutter in a number of years. She believes her last stress test was approximately 10 years ago. She does not have any history of significant CAD or catheterization. She states over last 3 months she has been having intermittent episodes of chest pain usually lasting for a few minutes up to 20 minutes not associated with any significant shortness breath, nausea or diaphoresis. It feels like a achiness behind her left breast. No significant association with movement or positioning. No significant trauma. Symptoms have been recurrent and therefore mention this to her daughter who works at the prior station and was recommended to come to the hospital. Denies any significant palpitations during these episodes. 10/13 Patient is having some nausea this morning. Denies any chest pain or pressure. Denies any actual abdominal pain. Is awaiting a stress test PHYSICAL EXAMINATION Vital signs reviewed. CONSTITUTIONAL: No apparent distress. HEENT: Head is normocephalic. Pupils are equal, round. Sclerae anicteric. Mucous membranes of the mouth are moist. No JVD. No carotid bruit. CHEST EXAMINATION: Lungs are clear to auscultation. No chest wall tenderness is noted on palpation or with deep breathing. HEART EXAMINATION: Regular rate and rhythm. S1, S2 heard. No murmurs, gallops or rub. ABDOMEN: Soft, nontender. Positive bowel sounds. EXTREMITIES: 2+ peripheral pulses, no lower extremity edema and no calf tenderness. NEUROLOGIC EXAMINATION: Patient is awake, alert and oriented x3. ASSESSMENT Atypical episodic chest pain over the last few months Hypertension Hyperlipidemia Dyspnea PLAN patient having additional nausea today. Await stress test. Try GI cocktail. If stress test normal patient may be discharged home. Objective - Vital Signs Vital signs: Vital Signs Temp 97.5 F L 10/14/23 07:42 Pulse 98 10/14/23 07:42 Resp 16 10/14/23 07:42 BP 140/84 10/14/23 07:42 Pulse Ox 94 L 10/14/23 07:42 FiO2 Intake & Output 10/13/23 10/14/23 10/14/23 18:59 06:59 18:59 Weight 56.699 kg Other: # Voids 1 - Labs CBC & Chem 7: 10/13/23 11:50 10/14/23 08:20 Labs: Abnormal Lab Results - Last 24 Hours (Table) 10/13/23 10/13/23 10/14/23 Range/Units 11:50 11:50 08:20 RBC 3.52 L (3.80-5.40) m/uL Hgb 10.8 L (11.4-16.0) gm/dL Hct 32.0 L (34.0-46.0) % Sodium 134 L (137-145) mmol/L Glucose 105 H 134 H (74-99) mg/dL Magnesium 1.3 L (1.6-2.3) mg/dL Total Protein 6.0 L (6.3-8.2) g/dL
--- NOTE | 2023-10-14 10:30 | CA ---
Transthoracic Echo Report Name: Gisell Bernabe Age: 78 Gender: F : 1945 Exam Date: 10/14/2023 08:04 Exam Location: [facility] Ht (in): 61 Wt (lb): 125 Ordering Physician: Balbir Olvera DO ([email or web address]) Attending/Referring Phys: [employer] Keira Sinclair RDCS Procedure CPT: Indications: re: CP Cardiac Hx: Technical Quality: Fair Contrast 1: Total Dose (mL): Contrast 2: Total Dose (mL): MEASUREMENTS (Male / Female) Normal Values 2D ECHO LV Diastolic Diameter PLAX 4.2 cm 4.2 - 5.9 / 3.9 - 5.3 cm LV Systolic Diameter PLAX 3.0 cm IVS Diastolic Thickness 0.7 cm 0.6 - 1.0 / 0.6 - 0.9 cm LVPW Diastolic Thickness 0.9 cm 0.6 - 1.0 / 0.6 - 0.9 cm LV Relative Wall Thickness 0.4 LVOT Diameter 2.1 cm LV Diastolic Volume MOD BP 90.2 cm??? 67 - 155 / 56 - 104 cm??? LV Systolic Volume MOD BP 38.7 cm??? 22 - 58 / 19 - 49 cm??? LV Ejection Fraction MOD BP 57.1 % >= 55 % LV Cardiac Index MOD BP 3215.4 cm???/min???m??? LV Diastolic Volume MOD 4C 89.3 cm??? LV Systolic Volume MOD 4C 41.1 cm??? LV Ejection Fraction MOD 4C 54.0 % LV Cardiac Index MOD 4C 3011.0 cm???/min???m??? LV Diastolic Length 4C 7.6 cm LV Systolic Length 4C 6.0 cm LV Diastolic Volume MOD 2C 90.1 cm??? LV Systolic Volume MOD 2C 36.8 cm??? LV Ejection Fraction MOD 2C 59.1 % LV Cardiac Index MOD 2C 3325.8 cm???/min???m??? LV Diastolic Length 2C 7.8 cm LV Systolic Length 2C 6.0 cm LA Volume 31.5 cm??? 18 - 58 / 22 - 52 cm??? LA Volume Index 20.0 cm???/m??? 16 - 28 cm???/m??? DOPPLER AV Peak Velocity 116.1 cm/s AV Peak Gradient 5.4 mmHg AV Mean Velocity 73.9 cm/s AV Mean Gradient 2.6 mmHg AV Velocity Time Integral 20.0 cm LVOT Peak Velocity 86.1 cm/s LVOT Peak Gradient 3.0 mmHg LVOT Velocity Time Integral 15.2 cm LVOT Stroke Volume 54.3 cm??? LVOT Stroke Volume Index 35.1 ml/m??? LVOT Cardiac Index 3386.4 cm???/min???m??? AV Area Cont Eq vti 2.7 cm??? AV Area Cont Eq pk 2.6 cm??? MV Area PHT 8.6 cm??? Mitral E Point Velocity 57.8 cm/s Mitral A Point Velocity 91.6 cm/s Mitral E to A Ratio 0.6 MV Deceleration Time 88.2 ms PV Peak Velocity 97.1 cm/s PV Peak Gradient 3.8 mmHg FINDINGS Left Ventricle Left ventricular ejection fraction is estimated at 55 % with beat to beat variability. Left ventricular cavity size normal. Left ventricular wall thickness normal. No obvious regional wall motion abnormalities. Right Ventricle Normal right ventricular size and function. Unable to estimate the right ventricular systolic pressure. Right Atrium Normal right atrial size. Left Atrium Normal left atrial size. Mitral Valve Structurally normal mitral valve. No evidence for mitral valve prolapse. No mitral stenosis. Trace mitral regurgitation. Aortic Valve Trileaflet aortic valve. No aortic stenosis. Trace aortic regurgitation. Tricuspid Valve Structurally normal tricuspid valve. No tricuspid stenosis. Trace tricuspid regurgitation. Pulmonic Valve Structurally normal pulmonic valve. No pulmonic stenosis. Trace pulmonic regurgitation. Pericardium No pericardial effusion. Aorta Normal size aortic root and proximal ascending aorta. CONCLUSIONS Left ventricular ejection fraction 55% Trace mitral regurgitation Trace aortic regurgitation No pericardial effusion Previewed by: Dr. Balbir Olvera DO (Electronically Signed) Final Date: 14 October 2023 10:29
--- NOTE | 2023-10-14 13:15 | CA ---
Lexiscan Nuclear Stress Test Report Name: Gisell Bernabe Exam Date: 10/14/2023 10:40 Exam Location: [facility] Ht (in): 61 Wt (lb): 125 BSA: 1.55 Ordering Phys: Balbir Olvera DO Referring Phys: CARLOS, Technologist: Yadiel Daniels Age: 78 Gender: F : 1945 Procedure CPT: Indications: Reflex order-Stress test ICD-10 Codes: Patient History: Medications: SEE CHART Meds past 24 hrs: Pretest Chest Pain: STRESS TEST Lexiscan Protocol Exercise Duration (min:sec): 01:[address] Depressions (mm): Angina Score: Sagastume Score: Resting HR (bpm): 87 Peak HR (bpm): 107 Resting BP (mmHg): 155 / 76 Peak BP (mmHg): 133 / 65 MPHR: 141 Target HR: 120 % MPHR: 76 METS: 1.0 Total Dose: Peak Dose: Atropine: Double Product: 11937 BP Response: Stress Termination: INFUSION COMPLETE Stress Symptoms: NO SYMPTOMS Stress Summary: ECG ANALYSIS Resting ECG: Stress ECG: CONCLUSIONS At baseline EKG showed normal sinus rhythm, normal axis, no significant ST or T wave abnormalities. Patient recieved IV infusion of Lexiscan 0.4mg and at peak infusion EKG showed no significant change from baseline. Conclusions: 1. Normal EKG response to Lexiscan infusion 2. Nuclear imaging to be reported separately. Dr. Balbir Olvera DO (Electronically Signed) Final Date: 14 October 2023 13:14
[2023-10-14] MEDS: MAG HYDROX/AL HYDROX/SIMETH 30 ML, HYOSCYAMINE ELIXIR 10 ML, LIDOCAINE VISCOUS 2% 10 ML PO ONE (13:35)
[2023-10-14] MEDS: FOLIC ACID-VIT B COMPLEX-VIT C 1 CAP PO SCH (13:37)
[2023-10-14 15:01] VITALS: BP 125/77; PULSE 99; TEMP 97.6
--- NOTE | 2023-10-14 15:54 | NM ---
EXAMINATION TYPE: NM stress lexiscan cardiolite DATE OF EXAM: 10/14/2023 COMPARISON: NONE HISTORY: Chest pain TECHNIQUE: After the intravenous administration of 9.9 mCi Tc 99m Sestamibi - Cardiolite resting SPE CT images acquired 45 minutes post injection. At peak stress 26.2 mCi Tc 99m Sestamibi - Stress images obtained 40 minutes post injection The patient was stressed with 0.4mg Lexiscan. FINDINGS: No fixed defects are evident. Polar maps suggest a septal reversible defect, this is felt to be artif act. Corresponding defect on SPECT imaging however is not evident. No definite reversible stress def ects on Spect images Wall motion is normal Ejection fraction is calculated to be 73 %. IMPRESSION: 1. No definite stress-induced ischemic changes.
[2023-10-14 17:45] LABS: Chol/HDL Ratio 2.53 Ratio; LDL Cholesterol,Calculated 74.7 mg/dL (0.0-131.0)
== END 2023-10-14 17:17 | disposition home or self-care (01) ==
LOC: EC 11:24 → 6NMEDSUR 13:28
PROVIDERS: ADMIT Internal Medicine; ATTEND Internal Medicine
DX: R07.89 Other chest pain (principal); E83.42 Hypomagnesemia; I10 Essential (primary) hypertension; E78.5 Hyperlipidemia, unspecified; M19.90 Unspecified osteoarthritis, unspecified site; E03.9 Hypothyroidism, unspecified; K21.9 Gastro-esophageal reflux disease without esophagitis; J30.2 Other seasonal allergic rhinitis; M10.9 Gout, unspecified; F41.9 Anxiety disorder, unspecified; Z79.84 Long term (current) use of oral hypoglycemic drugs; Z90.49 Acquired absence of other specified parts of digestive tract
CPT/HCPCS: 99285; 36415; 93005 ×2; 93017; 93306; 82747; 80061; 80053; 80048; 82607; 83735; 84484; 85025; 85610; 85730; 71046; 78452; G0378 ×2; A9500; J3475